=== PATIENT | male | born 1980 | race Caucasian/White ===

== ENCOUNTER 2019-02-14 09:36 | Emergency (ER) | payer OTHER ==
[2019-02-14 09:40] VITALS: BP 118/70; PULSE 86; TEMP 98.5; BMI 27.8
[2019-02-14] MEDS ORDERED: IBUPROFEN 400 MG TABLET (FP) PO ONE ×2 (10:13→10:18)
--- NOTE | 2019-02-14 10:19 | PDOC ---
History of Present Illness - General Chief Complaint: Injury Stated Complaint: INJURY Time Seen by Provider: 02/14/19 10:07 History Source: Patient Exam Limitations: Clinical Condition - History of Present Illness Initial Comments: 02/14/19 10:15 Patient with no significant past medical history present with complaint of left midfoot pain and pain to right buttocks status post slip and fall in the bathroom yesterday on the buttocks. Patient reported mild pain to right buttocks worsening pain to left midfoot. Denies any other symptoms Timing/Duration: 24 hours Past History - Past Medical History Allergies/Adverse Reactions: Allergies Allergy/AdvReac Type Severity Reaction Status Date / Time No Known Drug Allergies Allergy Verified 02/14/19 09:40 Home Medications: Ambulatory Orders No Home Medications 10/09/12 Ibuprofen 800 mg PO Q8H PRN #20 tablet 02/14/19 Anemia: No Asthma: No Cancer: No Cardiac Disorders: No CVA: No COPD: No CHF: No Dementia: No Diabetes: No GI Disorders: No Disorders: No HTN: No Hypercholesterolemia: No Liver Disease: No Seizures: No Thyroid Disease: No - Surgical History Abdominal Surgery: No Appendectomy: No Cardiac Surgery: No Cholecystectomy: No Lung Surgery: No Neurologic Surgery: No Orthopedic Surgery: No - Suicide/Smoking/Psychosocial Hx Smoking History: Never smoked Have you smoked in the past 12 months: No Information on smoking cessation initiated: No Hx Alcohol Use: No Drug/Substance Use Hx: No Substance Use Type: Alcohol Hx Substance Use Treatment: No Review of Systems - Review of Systems Able to Perform ROS?: Yes Is the patient limited Japanese proficient: No Constitutional: No: Malaise, Weakness HEENTM: No: Symptoms Reported Respiratory: No: Symptoms reported Cardiac (ROS): No: Symptoms Reported ABD/GI: No: Symptoms Reported : No: Symptoms Reported Musculoskeletal: Yes: Symptoms Reported, See HPI, Joint Pain (left midfoot), Muscle Pain (right buttock). No: Joint Stiffness Neurological: No: Numbness, Paresthesia, Tingling All Other Systems: Reviewed and Negative *Physical Exam - Vital Signs Last Vital Signs Temp Pulse Resp BP Pulse Ox 98.5 F 86 18 118/70 96 02/14/19 09:37 02/14/19 09:37 02/14/19 09:37 02/14/19 09:37 02/14/19 09:37 - Physical Exam Comments: 02/14/19 10:18 GENERAL: Well developed, well nourished. Awake and alert. No acute distress. CARDIOVASCULAR: Regular rate and rhythm. No murmurs, rubs, or gallops. PULMONARY: No evidence of respiratory distress. MUSCULOSKELETAL : mild tenderness over lateral aspect of left mid and distal foot. No visible swelling or deformity. No ankle pain or tenderness. No tenderness to toes or medial aspect of foot. No bony deformities EXTREMITIES: No cyanosis. No clubbing. No edema. No calf tenderness. SKIN: Warm and dry. Normal capillary refill. No bruising or ecchymosis. NEUROLOGICAL: Alert, awake, appropriate. No motor deficits in the lower extremities. Gait is normal without ataxia. PSYCHIATRIC: Cooperative. Good eye contact. Appropriate mood and affect. General Appearance: Yes: Nourished, Appropriately Dressed. No: Apparent Distress ED Treatment Course - RADIOLOGY Radiology Studies Ordered: Category Date Time Status ANKLE & FOOT-LEFT* [RAD] Stat Radiology 02/14/19 10:13 Ordered Medical Decision Making - Medical Decision Making 02/14/19 10:17 Patient with no significant past medical history present with complaint of left midfoot pain and pain to right buttocks status post slip and fall in the bathroom yesterday on the buttocks. Patient reported mild pain to right buttocks worsening pain to left midfoot. Denies any other symptoms Exam significant for mild tenderness to left midfoot otherwise normal exam. No visible deformity of swelling. Symptoms likely foot sprain. X-ray of left foot and ankle ordered to rule out acute pathology. Ibuprofen 800 mg by mouth ordered for pain 02/14/19 10:54 x-ray of left foot shows no acute fracture. Patient symptoms likely foot sprain and stable for discharge on ibuprofen prn for pain with postop shoe and podiatry follow-up *DC/Admit/Observation/Transfer Diagnosis at time of Disposition: Right buttock pain Sprain of foot, left Qualifiers: Encounter type: initial encounter Qualified Code(s): S93.602A - Unspecified sprain of left foot, initial encounter - Discharge Dispostion Disposition: HOME Condition at time of disposition: Stable Decision to Admit order: No - Prescriptions Prescriptions: Ibuprofen 800 mg PO Q8H PRN #20 tablet PRN Reason: pain - Referrals Referrals: Pj Wells MD [Staff Physician] - - Patient Instructions Printed Discharge Instructions: DI for Foot Sprain Additional Instructions: X-ray of her left foot shows no acute fracture or dislocation. The symptoms likely for sprain. Take prescribed medication as needed for pain. Rest left foot. Apply hot compresses 2-3 times a day as needed for foot and buttock pain. Follow-up referred podiatry if symptoms persist for more than 4 days - Post Discharge Activity Forms/Work/School Notes: Back to Work
== END 2019-02-14 11:06 | disposition home or self-care (01) ==
LOC: JERFT 09:36
DX: S93.602A Unspecified sprain of left foot, initial encounter (principal); W01.0XXA Fall on same level from slipping, tripping and stumbling without subsequent striking against object, initial encounter; Y93.89 Activity, other specified; Y92.031 Bathroom in apartment as the place of occurrence of the external cause; Y99.8 Other external cause status
CPT/HCPCS: 73610-TC-LT-FY; 73630-TC-LT; 99281-25

== ENCOUNTER 2019-10-03 23:10 | Emergency (ER) | payer OTHER ==
[2019-10-03 23:16] VITALS: BP 122/66; PULSE 71; TEMP 98.5; BMI 26.2
[2019-10-04] MEDS ORDERED: KETOROLAC TROMETHAMINE 30 MG/1 ML VIAL IM ONE (00:33)
[2019-10-04] MEDS ORDERED: KETOROLAC TROMETHAMINE 30 MG/1 ML VIAL ONE (00:47)
--- NOTE | 2019-10-04 01:00 | PDOC ---
History of Present Illness - General Chief Complaint: Injury Stated Complaint: LT WRIST PAIN Time Seen by Provider: 10/03/19 23:20 History Source: Patient Exam Limitations: No Limitations Past History - Past Medical History Allergies/Adverse Reactions: Allergies Allergy/AdvReac Type Severity Reaction Status Date / Time No Known Drug Allergies Allergy Verified 10/03/19 23:16 Home Medications: Ambulatory Orders Ibuprofen [Motrin -] 600 mg PO QID PRN #28 tablet 10/04/19 Oxycodone HCl/Acetaminophen [Percocet 5-325 mg Tablet] 1 tab PO Q6H PRN #20 tab MDD 4 10/04/19 Anemia: No Asthma: No Cancer: No Cardiac Disorders: No CVA: No COPD: No CHF: No Dementia: No Diabetes: No GI Disorders: No Disorders: No HTN: No Hypercholesterolemia: No Liver Disease: No Seizures: No Thyroid Disease: No - Surgical History Abdominal Surgery: No Appendectomy: No Cardiac Surgery: No Cholecystectomy: No Lung Surgery: No Neurologic Surgery: No Orthopedic Surgery: No - Psycho Social/Smoking Cessation Hx Smoking History: Never smoked Have you smoked in the past 12 months: No Information on smoking cessation initiated: No Hx Alcohol Use: No Drug/Substance Use Hx: No Substance Use Type: Alcohol Hx Substance Use Treatment: No *Physical Exam - Vital Signs Last Vital Signs Temp Pulse Resp BP Pulse Ox 98.5 F 71 17 122/66 100 10/03/19 23:13 10/03/19 23:13 10/03/19 23:13 10/03/19 23:13 10/03/19 23:13 - Physical Exam General Appearance: No: Apparent Distress Extremity: positive: Other (+swelling and TTP along radial aspect of L wrist, + snuffbox tenderness, LROM of L wrist due to pain, no deformity noted, LUE neurovascularly intact) Integumentary: negative: Ecchymosis, Bruising Neurologic: positive: Alert Procedures - Splinting Splint Location: Left: Wrist Pre-Proc Neuro Vasc Exam: normal Hand-Made Type: orthoglass Splint Type: Yes: Thumb Spica Post-Proc Neuro Vasc Exam: normal Patrice Bandage: yes Sling: Yes ED Treatment Course - Medications Given in the ED: ED Medications Discontinued Medications Generic Name Dose Route Start Last Admin Trade Name Freq PRN Reason Stop Dose Admin Ketorolac Tromethamine 30 mg 10/04/19 00:33 10/04/19 00:50 Toradol Injection - IM 10/04/19 00:34 30 mg ONCE ONE Administration Oxycodone/Acetaminophen 1 combo 10/03/19 23:45 10/03/19 23:49 Percocet 5/325 - PO 10/03/19 23:46 1 combo ONCE ONE Administration Medical Decision Making - Medical Decision Making 39 y/o M with no sig pmh presents with L wrist pain s/p falling back while rollerblading today. Denies head/neck/other injuries, numbness/tingling Xray wet read negative for fracture (reviewed with Dr. White) However, given TTP along snuffbox region, placed in thumb spica splint in case of scaphoid fracture Given percocet for pain 10/04/19 00:55 Discharge - Discharge Information Problems reviewed: Yes Clinical Impression/Diagnosis: Left wrist injury Qualifiers: Encounter type: initial encounter Qualified Code(s): S69.92XA - Unspecified injury of left wrist, hand and finger(s), initial encounter Condition: Stable Disposition: HOME - Admission No - Additional Discharge Information Prescriptions: Ibuprofen [Motrin -] 600 mg PO QID PRN #28 tablet PRN Reason: Pain Oxycodone HCl/Acetaminophen [Percocet 5-325 mg Tablet] 1 tab PO Q6H PRN #20 tab MDD 4 PRN Reason: Pain Prescription Drug Monitoring Program (I-STOP) results: I-STOP not reviewed - Follow up/Referral Referrals: Demian Frazier DO [Staff Physician] - 2 Days - Patient Discharge Instructions Patient Printed Discharge Instructions: DI for Wrist Fracture Additional Instructions: Thank you for choosing [facility]. It was a pleasure taking care of you. It is possible you have wrist fracture You may take Motrin 600 mg every 6 hours by mouth as needed for mild to moderate pain. Take Motrin with food. For severe pain, you may take Percocet. This medication can make you constipated for which you may take over the counter Senna tablets as needed. This medication can also make you drowsy so please be cautious with driving or performing heavy physical work. Do not get the splint wet Please follow-up with orthopedics for further evaluation Return to the Emergency Department if your symptoms worsen or persist or have other concerning symptoms. - Post Discharge Activity
--- NOTE | 2019-10-04 05:04 | PDOC ---
*Physical Exam - Vital Signs Last Vital Signs Temp Pulse Resp BP Pulse Ox 98.5 F 71 17 122/66 100 10/03/19 23:13 10/03/19 23:13 10/03/19 23:13 10/03/19 23:13 10/03/19 23:13 ED Treatment Course - RADIOLOGY Radiology Studies Ordered: Category Date Time Status WRIST W/HAND-LEFT* [RAD] Stat Radiology 10/03/19 23:16 Taken - Medications Given in the ED: ED Medications Discontinued Medications Generic Name Dose Route Start Last Admin Trade Name Freq PRN Reason Stop Dose Admin Ketorolac Tromethamine 30 mg 10/04/19 00:33 10/04/19 00:50 Toradol Injection - IM 10/04/19 00:34 30 mg ONCE ONE Administration Oxycodone/Acetaminophen 1 combo 10/03/19 23:45 10/03/19 23:49 Percocet 5/325 - PO 10/03/19 23:46 1 combo ONCE ONE Administration Medical Decision Making - Medical Decision Making 10/04/19 05:03 Case reviewed, agree with assessment and plan Discharge - Discharge Information Problems reviewed: Yes Clinical Impression/Diagnosis: Wrist injury Left wrist injury Qualifiers: Encounter type: initial encounter Qualified Code(s): S69.92XA - Unspecified injury of left wrist, hand and finger(s), initial encounter Condition: Stable Disposition: HOME - Additional Discharge Information Prescriptions: Ibuprofen [Motrin -] 600 mg PO QID PRN #28 tablet PRN Reason: Pain Oxycodone HCl/Acetaminophen [Percocet 5-325 mg Tablet] 1 tab PO Q6H PRN #20 tab MDD 4 PRN Reason: Pain - Follow up/Referral Referrals: Demian Frazier DO [Staff Physician] - 2 Days - Patient Discharge Instructions Patient Printed Discharge Instructions: DI for Wrist Fracture Additional Instructions: Thank you for choosing [facility]. It was a pleasure taking care of you. It is possible you have wrist fracture You may take Motrin 600 mg every 6 hours by mouth as needed for mild to moderate pain. Take Motrin with food. For severe pain, you may take Percocet. This medication can make you constipated for which you may take over the counter Senna tablets as needed. This medication can also make you drowsy so please be cautious with driving or performing heavy physical work. Do not get the splint wet Please follow-up with orthopedics for further evaluation Return to the Emergency Department if your symptoms worsen or persist or have other concerning symptoms. - Post Discharge Activity
== END 2019-10-04 00:59 | disposition home or self-care (01) ==
LOC: JER 23:10
PROC: 3E0233Z Introduction of Anti-inflammatory into Muscle, Percutaneous Approach (ICD-10-PCS; principal; 2019-10-03)
PROC: 2W3HX1Z Immobilization of Left Thumb using Splint (ICD-10-PCS; 2019-10-03)
DX: S69.82XA Other specified injuries of left wrist, hand and finger(s), initial encounter (principal); W18.39XA Other fall on same level, initial encounter; Y93.51 Activity, roller skating (inline) and skateboarding; Y92.89 Other specified places as the place of occurrence of the external cause; Y99.8 Other external cause status
CPT/HCPCS: 73110-TC-LT-FY; 73130-TC-LT-FY; 99284-25

== ENCOUNTER 2022-12-20 19:53 | Emergency (ER) | payer OTHER ==
[2022-12-20 20:02] VITALS: BP 122/76; PULSE 80; RESP 18; TEMP 98.1; BMI 27.6
[2022-12-20] MEDS ORDERED: ACETAMINOPHEN 500 MG TABLET (FP) PO ONE (22:33)
[2022-12-20] MEDS ORDERED: IBUPROFEN 600 MG TABLET (FP) PO ONE ×2 (22:33→22:35)
[2022-12-20] MEDS ORDERED: BACITRACIN ZINC 15 GM TUBE TOPICAL OINTMENT TP ONE (22:34)
[2022-12-20] MEDS ORDERED: ACETAMINOPHEN 500 MG TABLET (FP) ONE (22:35)
[2022-12-20] MEDS ORDERED: BACITRACIN ZINC 15 GM TUBE TOPICAL OINTMENT ONE (22:47)
== END 2022-12-20 23:21 | disposition home or self-care (01) ==
LOC: JERFT 19:53
DX: S50.811A Abrasion of right forearm, initial encounter (principal); S80.211A Abrasion, right knee, initial encounter; R22.32 Localized swelling, mass and lump, left upper limb; V28.49XA Other motorcycle driver injured in noncollision transport accident in traffic accident, initial encounter
CPT/HCPCS: 73110-TC-LT-FY; 73610-TC-LT-FY; 73630-TC-LT; 99284-25